=== PATIENT | female | born 1970 | race Caucasian/White ===

== ENCOUNTER 2019-11-12 16:53 | Emergency (ER) | payer OTHER ==
[~2019-11-12] VITALS: Ht 160 cm; Wt 66.2 kg
[2019-11-12 17:14] VITALS: Ht 160 cm; Wt 66.2 kg
[2019-11-12 19:43] VITALS: BP 139/86
== END 2019-11-12 19:43 | disposition home or self-care (01) ==
LOC: ED 16:53
DX: M25.571 Pain in right ankle and joints of right foot (principal)